=== PATIENT | female | born 1990 | race Caucasian/White ===

== ENCOUNTER 2018-11-19 20:29 | Emergency (ER) | payer BC, SELFPAY ==
[2018-11-19 20:30] VITALS: BP 144/87; PULSE 82; RESP 15; TEMP 36.8; O2SAT 97; BMI 35.3
--- NOTE | 2018-11-19 21:15 | ED.DCSUM_ITS ---
- ER Visit Summary Date of Service: 11/19/18 Chief Complaint: [Redness and swelling to right arm] History of Present Illness: The patient is a 28 F [resents to the emergency department with redness and swelling to the right arm that she developed yesterday. Patient [place] felt something sting her in the back of the arm however she did not see an insect. Patient now has increased pain, redness, and swelling. Patient states the area feels warm to the touch. She denies any fever although she is been nauseated today. The area is somewhat itchy.] Physical Examination: [HEENT-PERRLA, EOMI. Cranial nerves II through XII grossly intact. TMs clear. Mucous membranes moist. No adenopathy. Cardiovascular-regular rate and rhythm without murmur or ectopy Lungs-clear to auscultation, chest wall stable without crepitus or subcu emphysema Abdomen-normoactive bowel sounds, soft, nontender, no rebound or rigidity, no peritoneal signs. Extremities-intact ?4, normal range of motion, normal pulses, atraumatic. Right arm-right upper arm over the area of tricep has a oval area of erythema measuring approximately 8 x 10 cm it is warm to the touch. No fluctuance noted. No lymphogenic streaking noted. Slightly tender to palpation. No puncture wounds noted.] Test Results: [None indicated] Emergency Department Course and Treatment: [She will start on Keflex and Bactrim.] Treatment Plan: [Discharged home with prescription for Keflex and Bactrim. 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 Patient advised to return if increasing pain, redness, swelling, or conditions worsen anyway.] Disposition: [Discharged home in stable condition.] Impression: Insect bite right arm with cellulitis [] This note was generated with [employer] dictation software. It may contain incorrect words, spelling, and punctuation that were not noted in review of the chart prior to signing
--- NOTE | 2018-11-19 21:17 | ED.DEP ---
ED Disposition - Plan for ED Patient: Instructions: INSECT STING/BITE, Infected Prescriptions: Smz/Tmp Ds [Bactrim Ds] 1 tab PO BID #14 tab Prescription Printed Cephalexin [Keflex] 500 mg PO Q6 #40 cap Prescription Printed Referrals: Monty Mcleod MD [STAFF PHYSICIAN] - 3-5 Days
[2018-11-19 21:33] VITALS: RESP 15
[2018-11-19] MEDS: Cephalexin 250 MG Capsule 500 MG PO (21:35)
[2018-11-19] MEDS: Smz/Tmp Ds Tablet 1 TABLET PO (21:35)
== END 2018-11-19 21:38 | disposition home or self-care (01) ==
LOC: ED 21:22
PROVIDERS: Emergency Provider Emergency Medicine
DX: S40.861A Insect bite (nonvenomous) of right upper arm, initial encounter (principal); L03.113 Cellulitis of right upper limb; W57.XXXA Bitten or stung by nonvenomous insect and other nonvenomous arthropods, initial encounter; Y93.9 Activity, unspecified; Y92.9 Unspecified place or not applicable
CPT/HCPCS: 99283

== ENCOUNTER 2019-01-24 09:10 | Emergency (ER) | payer BC, SELFPAY ==
[2019-01-24 09:12] VITALS: BP 160/85; PULSE 82; RESP 17; TEMP 36.9; O2SAT 96; BMI 34.3
--- NOTE | 2019-01-24 09:34 | RAD_ITS ---
STUDY: X-RAY - LEFT ANKLE REASON FOR EXAM: Female, 28 years old. Pain. TECHNIQUE: 3 view(s) of the ankle. COMPARISON: None. FINDINGS: Normal visualized distal tibia and fibula. Normal medial and lateral malleoli. Normal tibiotalar articulation and ankle mortise. Small plantar spur. The visualized subtalar, talonavicular, calcaneocuboid and tarsal articulations are normal. The soft tissue structures are unremarkable. RAD/Ankle min 3 Views IMPRESSION: Small plantar spur. Electronically Signed: Mark De Leon, at 10:19 EST , Service support ,
--- NOTE | 2019-01-24 09:34 | RAD_ITS ---
STUDY: X-RAY - LEFT FOOT CLINICAL: Female, 28 years old. Pain. TECHNIQUE: 3 view(s) of the foot. COMPARISON: None. FINDINGS: There is a plantar calcaneal spur. Normal visualized subtalar, talonavicular, calcaneocuboid, tarsal and tarsometatarsal articulations. Normal metatarsi. Normal metatarsophalangeal joint of the great toe. Normal tibial and fibular sesamoid bones. Normal interphalangeal joint of the great toe. Normal phalanges of the great toe. Normal second through fifth metatarsophalangeal joints. Normal interphalangeal joints and phalanges of the lesser toes. The soft tissue structures are unremarkable. RAD/Foot min 3 Views IMPRESSION: Small plantar spur Electronically Signed: Mark De Leon, at 10:20 EST , Service support ,
--- NOTE | 2019-01-24 09:40 | ED.VISSUMM ---
- ER Visit Summary Date of Service: 01/24/19 Chief Complaint: Foot and ankle pain History of Present Illness: The patient is a 28 F no significant past medical history. Patient states she was seated she got up her foot was asleep she stepped awkwardly on her left foot heard a pop is complaining of pain both of the left lateral ankle and her left foot. She denies any prior surgeries to this foot. She has had a growth plate fracture of 1 of her feet but is unsure which one. She denies any knee or hip pain. No other injuries. Physical Examination: Young female no acute distress vital signs are stable afebrile. HEENT exam unremarkable. Lungs clear to auscultation. Heart regular rhythm no murmur. Abdomen soft nontender. Patient is moving all 4 extremities. Neurovascular intact. There is no edema or swelling. No redness or warmth. The left hip and left knee are nontender with normal range of motion no swelling. Left ankle tender in the left lateral malleolus. No significant swelling. She has normal dorsi plantarflexion. Achilles tendon is intact. No bony deformity. Left foot proximal third of the foot is tender to palpation as is the midfoot. Again no gross bony deformity. Normal DP pulse. No swelling. He is able to wiggle her toes. Normal cap refill. And sensation. Neurologic exam unremarkable. Test Results: Left ankle x-ray 3 views read by myself no acute abnormality read both by myself and the radiologist. Plantar heel spur Left foot x-ray 3 views read by myself no acute abnormality read by myself and the radiologist. Emergency Department Course and Treatment: Motrin for pain Treatment Plan: Repeat exam unchanged. Patient and I went over her x-ray results. Ice, elevate, Motrin, crutches and increase weightbearing as tolerated. Follow-up if not improving. Disposition: Discharge Impression: Acute left foot and ankle sprain This note was generated with [employer] dictation software. It may contain incorrect words, spelling, and punctuation that were not noted in review of the chart prior to signing ED Disposition - Plan for ED Patient: Referrals: Mahogany Koehler DO [Primary Care Provider] -
[2019-01-24] MEDS: Ibuprofen 400 MG Tablet 800 MG PO (09:52)
--- NOTE | 2019-01-24 10:56 | ED.DEP ---
ED Disposition - Plan for ED Patient: Disposition: Home or Assisted Living Instructions: Sprain, Ankle, with X-Ray Referrals: Mahogany Koehler, [Primary Care Provider] - 10-14 Days if not better Additional Instructions: Ice and elevate your foot and ankle. Motrin for pain and swelling. Crease weightbearing as tolerated. Follow-up with your doctor if not improving in 2 weeks.
== END 2019-01-24 11:40 | disposition home or self-care (01) ==
PROVIDERS: Emergency Provider Emergency Medicine; Family Provider Internal Medicine; PCP Internal Medicine
DX: S93.602A Unspecified sprain of left foot, initial encounter (principal); S93.402A Sprain of unspecified ligament of left ankle, initial encounter; M77.32 Calcaneal spur, left foot; X50.1XXA Overexertion from prolonged static or awkward postures, initial encounter; Y93.9 Activity, unspecified; Y92.9 Unspecified place or not applicable
CPT/HCPCS: 73610; 73630; 99283

== ENCOUNTER 2020-11-28 15:44 | Outpatient (CLI) | payer OTHER, SELFPAY ==
[2020-11-28 15:56] VITALS: BMI 36.1
[2020-11-28 15:59] VITALS: PULSE 93; O2SAT 97
[2020-11-28 16:08] VITALS: BP 130/77; PULSE 86; TEMP 36.7
--- NOTE | 2020-11-28 20:49 | OB.TRI.PN ---
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 See problem list details for additional plan information. Charges/Coding Procedures Urinary/Genital [id number]: [id number] non-stress test Interp
== END 2020-11-28 16:30 | disposition home or self-care (01) ==
LOC: WP 16:27 → WPOUT 17:58
PROVIDERS: PCP Internal Medicine; Referring Provider Obstetrics & Gynecology; Visit Provider Obstetrics & Gynecology
DX: O36.8120 Decreased fetal movements, second trimester, not applicable or unspecified (principal); Z3A.25 25 weeks gestation of pregnancy
CPT/HCPCS: 59025; 59050; 99218; G0378

== ENCOUNTER 2021-02-15 16:40 | Outpatient (CLI) | payer OTHER, SELFPAY ==
[2021-02-15 16:50] VITALS: BP 132/83; PULSE 95; TEMP 36.7; O2SAT 97
[2021-02-15 18:11] VITALS: BMI 37.1
--- NOTE | 2021-02-17 13:06 | OB.TRI.NOTE ---
HPI - General HPI Narrative STORMY YOUNG, is a 30 F @ 37+ weeks who presents for decreased FM gets care at outside facility. no complications with . PFSH PFSH Home Medications [id number] [] 1 tab PO DAILY 11/28/20 [History Last Taken Unknown] Allergy/AdvReac Type Severity Reaction Status Date / Time dexamethasone Allergy Hives Verified 01/24/19 09:11 Social History Smoking Status: Never smoker NST FHR Rate Baby A Baseline: 150 Variability:: Moderate Accelerations:: 15 x 15 Decelerations:: None NST Reactive:: Yes FHR Category:: Category I Uterine Activity:: irregular ctx Assessment & Plan (1) Decreased movement: QUALIFIERS: Fetus number: single or unspecified fetus Trimester: third trimester Qualified Code(s): O36.8130 - Decreased movements, third trimester, not applicable or unspecified (2) 37 weeks gestation of : PLAN: 37 weeks, decreased FM well being established- pt dc home to follow up with OB for routine care
== END 2021-02-15 23:59 | disposition home or self-care (01) ==
LOC: WPOUT 17:10 → WP 17:17
PROVIDERS: PCP Internal Medicine; Visit Provider Obstetrics & Gynecology
DX: O36.8130 Decreased fetal movements, third trimester, not applicable or unspecified (principal); Z3A.37 37 weeks gestation of pregnancy
CPT/HCPCS: 59025; 59050; 99218; G0378

== ENCOUNTER 2021-03-06 15:12 | Emergency (ER) | payer OTHER, SELFPAY ==
--- NOTE | 2021-03-06 15:16 | ED.RN ---
sent to OB for high BP
== END 2021-03-13 15:15 | disposition left against medical advice (07) ==
LOC: ED 03-13 17:16
PROVIDERS: PCP Internal Medicine
DX: Z53.21 Procedure and treatment not carried out due to patient leaving prior to being seen by health care provider (principal)

== ENCOUNTER 2021-03-06 16:27 | Observation (INO) | payer OTHER, SELFPAY ==
[2021-03-06] VITALS (10 sets, daily range): BP systolic 133–175; BP diastolic 78–107; PULSE 72–93; TEMP 36.6; BMI 30.5
[2021-03-06 16:50] LABS: Hematocrit 35.3 % (37-47); Hemoglobin 12.4 g/dL (12.0-15.0); Mean Corp Hgb Conc 35.1 g/dL (32-36); Mean Corpuscular Volume 85.5 fL (81-99); Platelet Count 213 K/mm3 (150-450); RBC Distribution Width CV 14.6 % (11.6-14.6); Red Blood Count 4.13 M/mm3 (4.2-5.4); White Blood Count 6.9 K/mm3 (4.4-11.0)
[2021-03-06 17:13] LABS: Protein, Urine (Random) < 6.0 mg/dL (<11.9)
[2021-03-06 17:16] LABS: ALB/GLOB Ratio 0.8 RATIO (0.9-2.4); AST(SGOT) 26 U/L (15-37); Alanine Aminotransfer ALT/SGPT 19 U/L (13-56); Albumin, Serum 2.7 g/dL (3.2-5.0); Alkaline Phosphatase 132 U/L (45-117); Anion Gap 7 (5-15); BUN 6 mg/dL (7-18); BUN/Creat Ratio 17.3 RATIO (10-20); Calcium,Total 8.9 mg/dL (8.5-10.1); Chloride 111 mmol/L (98-107); Creatinine, Serum 0.35 mg/dL (0.55-1.02); EST Glomerular Filtration Rate 233 mL/min (>60); Est Glom Filt Rate - Afr Amer 282 mL/min (>60); Estimated Creatinine Clearance 202.95 ml/min; Globulin 3.6 g/dL (2.2-4.2); Glucose 87 mg/dL (74-106); LDH 235 U/L (84-246); Potassium 3.6 mmol/L (3.5-5.1); Protein, Total 6.3 g/dL (6.4-8.2); Sodium Level 141 mmol/L (136-145)
[2021-03-06 17:25] LABS: Uric Acid 4.3 mg/dL (2.6-6.0)
[2021-03-06] MEDS: Acetaminophen 500 MG Tablet 1000 MG PO (17:34)
[2021-03-06 18:49] LABS: Bacteria 0 SEEN /hpf (None Seen); Mucous, Urine 0 SEEN /hpf (<or=2+); Red Blood Cells-Urine 0 SEEN /hpf (0-5); Squamous Epithelial Cells - UA 0 SEEN /hpf (5-10); White Blood Cells 0 SEEN /hpf (0-5)
--- NOTE | 2021-03-06 19:18 | NURSING ---
190-dr sury hayes in to assess pt. ok w discharge home.
[2021-03-06 19:20] LABS: Color, Urine Yellow (Yellow); Glucose, Dipstick Normal (Normal); Ketone-Dipstick Negative (Negative); Leukocyte Esterase-Dipstick Negative /ul (Negative); Nitrite-Dipstick Negative (Negative); Occult Blood-Urine Negative /ul (Negative); Protein-Dipstick Negative (Negative); Urine Bilirubin Dipstick Negative (Negative); Urine Clarity Clear (Clear); Urine Urobilinogen Normal (Normal)
--- NOTE | 2021-03-06 21:00 | OB.TRI.HP_ITS ---
HPI - General General Date of Admission: 03/06/21 HPI Narrative STORMY YOUNG, is a 30 F who presents on day #2 with c/o headache. She had an uncomplicated vaginal delivery on 03/04/21 at [facility] following induction of labor. She reports elevated blood pressures diagnosed around the time of delivery. She was discharged to home yesterday. She had COVID 1-2 weeks prior to delivery. She denies prior history of preeclampsia in recent or previous or chronic hypertension outside of . Headache is frontal, nonradiating. Denies vision changes, shortness of breath, chest pain, shortness of breath, abdominal pain. She is followed by Dr. Nevaeh richardson in [place], but lives here in [place]. [facility] Medical History (Updated 03/08/21 @ 20:[address] Mallika Herrera MD) Gestational hypertension Home Medications [id number] [] 1 tab PO DAILY 11/28/20 [History Last Taken 2 Days Ago ~03/04/21] ibuprofen 600 mg PO Q6H PRN 03/06/21 [History Last Taken 03/06/21 12:30] Allergy/AdvReac Type Severity Reaction Status Date / Time dexamethasone Allergy Hives Verified 01/24/19 09:11 Surgical History no surgical history no surgical history Social History Smoking Status: Never smoker History 2 Elective abortions Hx Para 2 Spontaneous abortions Hx # Term Pregnancies 2 Ectopic pregnancies Hx # Pregnancies Multiple births # of living children 2 Physical Exam Const alert, oriented x3 and no apparent distress General Appearance: cooperative and comfortable HEENT normocephalic Resp normal respiratory effort and normal air movement Auscultation: clear to auscultation bilaterally Cardio regular rate, regular rhythm, S1 normal heart sound and S2 normal heart sound GI soft to palpation, non-tender and non-distended OB / External & Speculum: other Uterus Palpation: other OB Fundus firm and nontender Extremity no calf tenderness Extremity Narrative: trace bilateral pedal edema, no pitting Neuro oriented x3 and deep tendon reflexes 2+ bilaterally Neuro Narrative: No clonus Assessment & Plan (1) headache: PLAN: Headache improved following Tylenol. Single severe range BP initially, not reproducible, otherwise mild elevation over approx 4 hours observation. Labs obtained normal and exam unremarkable - not c/w preeclampsia d/c home Encouraged home BP check OSH records requested however received following discharge - - labs relatively unchanged Pt to f/u this coming week with primary OB for BP check S/sx preeclampsia reviewed Charges/Coding Visit Charges Office Visits / Consults: [id number] OV L3 New
== END 2021-03-06 19:17 | disposition home or self-care (01) ==
LOC: WP 19:17 → WPOUT 03-09 14:51 → WP 03-09 14:51
PROVIDERS: Admitting Provider Obstetrics & Gynecology; PCP Internal Medicine; Referring Provider Obstetrics & Gynecology; Visit Provider Obstetrics & Gynecology
DX: O90.89 Other complications of the puerperium, not elsewhere classified (principal); R51.9 Headache, unspecified; Z86.16 Personal history of COVID-19
CPT/HCPCS: 36415; 80053; 81001; 82570; 83615; 84156; 84550; 85027; 99218; G0378

== ENCOUNTER 2021-03-13 13:53 | Inpatient (IN) | payer OTHER, SELFPAY ==
[2021-03-13] VITALS (67 sets, daily range): BP systolic 119–183; BP diastolic 67–105; PULSE 53–93; RESP 14–16; TEMP 35.8–36.9; O2SAT 91–98; BMI 27.4; BMI 33.3
--- NOTE | 2021-03-13 11:12 | ED.RN ---
CONTACTED CINTHYA PEARCE IN OB. PT SENT TO OB
[2021-03-13] MEDS: Lactated Ringers 500 ML IV.SOLN. IV (12:11)
--- NOTE | 2021-03-13 12:27 | HP.PCM.OB_ITS ---
History and Physical Date of Admission: 03/13/21 HPI: 31-year-old G2, P2 on March 04 presenting with headache. Reports on and off headache for 2 days. States that it is on the right side behind her eye and radiates posteriorly. No visual disturbances, no photophobia or phonophobia. Denies nausea or vomiting, denies right upper quadrant pain, denies chest pain or shortness of breath, diarrhea or constipation, fevers or chills. Last Tylenol dosing at 10 AM, last Motrin dosing at 5 AM. States that at home her blood pressures were in the 150s systolic which is why she came to the hospital today. Blood pressure on arrival severe range, repeat within normal limits slightly elevated diastolic. 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: G1: FT G2: FT , 03/04/21 Medical history: Denies Surgical history: Appendectomy, ear tubes Allergies: Dexamethasone causes anxiety and tachycardia Social history: Denies tobacco, alcohol, drug use Family history: Noncontributory Medications: Tylenol and Motrin, labetalol 100 twice daily Review of systems: Negative otherwise stated above Physical exam Vital signs: Blood pressure 136/91 -->138/81 temp 97.6 ?F, pulse 73, respiratory rate 14, 96% on room air General: Patient is no acute distress, resting in bed with lights on HEENT: Normocephalic/atraumatic, PERRLA Cardiorespiratory: No increased effort, heart rate regular Abdomen: Soft, nontender, no right upper quadrant pain Extremities: Minimal edema Neurologic: Cranial nerves II through XII grossly intact, patellar reflexes 2/4 bilaterally, no clonus Musculoskeletal: Full range of movement, strength 5/5 throughout all extremities Labs: Pending CBC, CMP, LDH, urinalysis, urine protein creatinine ratio Assessment/plan: 31-year-old G2, P2 presenting with headache and elevated blood pressures. -Blood work pending -500 cc LR bolus -IV Toradol for headache pending
[2021-03-13] MEDS: Ketorolac 15 MG/ML Vial IV (12:41)
[2021-03-13 12:47] LABS: Bacteria 0 SEEN /hpf (None Seen); Mucous, Urine 0 SEEN /hpf (<or=2+); Red Blood Cells-Urine 0 SEEN /hpf (0-5); White Blood Cells 0 SEEN /hpf (0-5)
[2021-03-13 12:57] LABS: Color, Urine Yellow (Yellow); Glucose, Dipstick Normal (Normal); Ketone-Dipstick Negative (Negative); Leukocyte Esterase-Dipstick Negative /ul (Negative); Nitrite-Dipstick Negative (Negative); Occult Blood-Urine Negative /ul (Negative); Protein-Dipstick Negative (Negative); Urine Bilirubin Dipstick Negative (Negative); Urine Clarity Sl. Cloudy (Clear); Urine Urobilinogen Normal (Normal); Urine pH 6.5 (5.0 - 8.0)
[2021-03-13 12:59] LABS: Protein, Urine (Random) < 6.0 mg/dL (<11.9); Protein:Creat Ratio 114 mg/g CRE (0-200)
[2021-03-13 13:04] LABS: Squamous Epithelial Cells - UA 0-5 SEEN /hpf (5-10)
[2021-03-13 13:18] LABS: Hematocrit 41.5 % (37-47); Hemoglobin 13.8 g/dL (12.0-15.0); Mean Corp Hgb Conc 33.3 g/dL (32-36); Mean Corpuscular Hgb 28.7 pg (27.0-32.0); Mean Corpuscular Volume 86.3 fL (81-99); Mean Platelet Vol. 9.3 fl (6.2-12.0); Platelet Count 323 K/mm3 (150-450); RBC Distribution Width CV 13.8 % (11.6-14.6); RBC Distribution Width SD 43.7 fl (35.1-43.9); Red Blood Count 4.81 M/mm3 (4.2-5.4); White Blood Count 7.2 K/mm3 (4.4-11.0)
[2021-03-13 13:44] LABS: ALB/GLOB Ratio 0.8 RATIO (0.9-2.4); AST(SGOT) 14 U/L (15-37); Alanine Aminotransfer ALT/SGPT 20 U/L (13-56); Albumin, Serum 3.1 g/dL (3.2-5.0); Alkaline Phosphatase 121 U/L (45-117); Anion Gap 6 (5-15); BUN 7 mg/dL (7-18); BUN/Creat Ratio 13.8 RATIO (10-20); Calcium,Total 8.9 mg/dL (8.5-10.1); Chloride 108 mmol/L (98-107); Creatinine, Serum 0.51 mg/dL (0.55-1.02); EST Glomerular Filtration Rate 150 mL/min (>60); Est Glom Filt Rate - Afr Amer 182 mL/min (>60); Glucose 79 mg/dL (74-106); LDH 216 U/L (84-246); Potassium 3.3 mmol/L (3.5-5.1); Protein, Total 7.1 g/dL (6.4-8.2); Sodium Level 141 mmol/L (136-145)
[2021-03-13] MEDS: Labetalol (Prefilled) 20 MG/4 ML IV (14:12)
[2021-03-13] MEDS: Magnesium Sulfate 4gm/100mL 4 GM/100 ML IV.SOLN. IV (14:25)
[2021-03-13 14:42] LABS: Magnesium 2.3 mg/dL (1.6-2.6)
[2021-03-13] MEDS: Magnesium Sulfate 4gm/100mL 2 GM/50 ML IV.SOLN. IV (14:49)
[2021-03-13] MEDS: Magnesium Sulfate 20 GM/500 ML BAG IV ×2 (15:00→23:40)
[2021-03-13] MEDS: Enoxaparin 40 MG/0.4 ML Syringe SC (15:42)
[2021-03-13] MEDS: Labetalol 200 MG Tablet PO ×2 (15:42→23:28)
[2021-03-13] MEDS: Acetaminophen 325 MG Tablet 650 MG PO ×2 (17:25→23:29)
[2021-03-13] MEDS: Ibuprofen 600 MG Tablet PO (19:04)
[2021-03-13 23:06] LABS: Magnesium 6.1 mg/dL (1.6-2.6)
[2021-03-14] VITALS (27 sets, daily range): BP systolic 94–123; BP diastolic 53–85; PULSE 66–184; RESP 16; TEMP 36–36.8; O2SAT 81–97
[2021-03-14] MEDS: Ibuprofen 600 MG Tablet PO ×4 (01:50→22:30)
[2021-03-14] MEDS: Acetaminophen 325 MG Tablet 650 MG PO ×3 (05:30→18:25)
[2021-03-14] MEDS: Labetalol 200 MG Tablet PO ×2 (08:45→16:50)
[2021-03-14] MEDS: Magnesium Sulfate 20 GM/500 ML BAG IV (09:55)
[2021-03-14] MEDS: Potassium Chloride IVPB 40 MEQ 100 MEQ IV BOLUS ×4 (10:00→13:40)
[2021-03-14] MEDS: Enoxaparin 40 MG/0.4 ML Syringe SC (11:30)
[2021-03-14 19:00] LABS: ALB/GLOB Ratio 0.9 RATIO (0.9-2.4); AST(SGOT) 13 U/L (15-37); Alanine Aminotransfer ALT/SGPT 18 U/L (13-56); Alkaline Phosphatase 108 U/L (45-117); Anion Gap 8 (5-15); BUN 7 mg/dL (7-18); Calcium,Total 6.6 mg/dL (8.5-10.1); Chloride 106 mmol/L (98-107); Creatinine, Serum 0.37 mg/dL (0.55-1.02); EST Glomerular Filtration Rate 218 mL/min (>60); Est Glom Filt Rate - Afr Amer 264 mL/min (>60); Estimated Creatinine Clearance 158.24 ml/min; Globulin 3.4 g/dL (2.2-4.2); Glucose 96 mg/dL (74-106); Protein, Total 6.4 g/dL (6.4-8.2); Sodium Level 137 mmol/L (136-145)
[2021-03-14 22:39] LABS: Absolute Lymphocyte Count 2.48 X10^3/uL (0.83-4.51); Absolute Neutrophil Count 3.4 X10^3/uL (2.0-7.7); Basophil# 0.05 X10^3/uL; Basophil% 0.7 % (0-1); Eosinophil# 0.21 X10^3/uL; Eosinophils% 3.1 % (0-5); Hematocrit 39.2 % (37-47); Hemoglobin 13.1 g/dL (12.0-15.0); Lymphocyte # 2.48 X10^3/ul (0.83-4.51); Lymphocyte % 36.7 % (19-41); Mean Corp Hgb Conc 33.4 g/dL (32-36); Mean Corpuscular Volume 86.9 fL (81-99); Mean Platelet Vol. 9.2 fl (6.2-12.0); Monocyte# 0.61 X10^3/uL; NRBC Flagged by Analyzer 0 % (0-5); Neutrophil # 3.39 X10^3/uL (2.7-7.7); Neutrophil % 50.4 % (47-70); Platelet Count 301 K/mm3 (150-450); RBC Distribution Width CV 13.9 % (11.6-14.6); RBC Distribution Width SD 44.1 fl (35.1-43.9); Red Blood Count 4.51 M/mm3 (4.2-5.4); White Blood Count 6.8 K/mm3 (4.4-11.0)
[2021-03-15] VITALS (23 sets, daily range): BP systolic 123–162; BP diastolic 60–100; PULSE 59–77; RESP 16–18; TEMP 36.4–36.8; O2SAT 93–97
[2021-03-15 00:15] LABS: Magnesium 6.6 mg/dL (1.6-2.6)
[2021-03-15] MEDS: Acetaminophen 325 MG Tablet 650 MG PO (01:00)
[2021-03-15] MEDS: Labetalol 200 MG Tablet PO ×3 (01:00→16:26)
[2021-03-15 01:21] LABS: Magnesium 7.1 mg/dL (1.6-2.6)
[2021-03-15 06:44] LABS: Absolute Neutrophil Count 3.1 X10^3/uL (2.0-7.7); Basophil# 0.03 X10^3/uL; Basophil% 0.5 % (0-1); Eosinophil# 0.24 X10^3/uL; Eosinophils% 3.9 % (0-5); Hematocrit 40.1 % (37-47); Hemoglobin 13.2 g/dL (12.0-15.0); Lymphocyte % 36.2 % (19-41); Mean Corp Hgb Conc 32.9 g/dL (32-36); Mean Corpuscular Hgb 28.5 pg (27.0-32.0); Mean Corpuscular Volume 86.6 fL (81-99); Mean Platelet Vol. 9.8 fl (6.2-12.0); Monocyte# 0.55 X10^3/uL; NRBC Flagged by Analyzer 0 % (0-5); Neutrophil # 3.05 X10^3/uL (2.7-7.7); Neutrophil % 50.2 % (47-70); Platelet Count 336 K/mm3 (150-450); RBC Distribution Width CV 13.9 % (11.6-14.6); RBC Distribution Width SD 43.8 fl (35.1-43.9); Red Blood Count 4.63 M/mm3 (4.2-5.4); White Blood Count 6.1 K/mm3 (4.4-11.0)
[2021-03-15 07:12] LABS: ALB/GLOB Ratio 0.8 RATIO (0.9-2.4); AST(SGOT) 35 U/L (15-37); Alanine Aminotransfer ALT/SGPT 20 U/L (13-56); Alkaline Phosphatase 106 U/L (45-117); Anion Gap 7 (5-15); BUN 8 mg/dL (7-18); BUN/Creat Ratio 18.8 RATIO (10-20); Calcium,Total 7.7 mg/dL (8.5-10.1); Chloride 111 mmol/L (98-107); Creatinine, Serum 0.42 mg/dL (0.55-1.02); EST Glomerular Filtration Rate 185 mL/min (>60); Est Glom Filt Rate - Afr Amer 223 mL/min (>60); Globulin 3.7 g/dL (2.2-4.2); Glucose 84 mg/dL (74-106); Potassium 3.8 mmol/L (3.5-5.1); Protein, Total 6.7 g/dL (6.4-8.2); Sodium Level 140 mmol/L (136-145)
--- NOTE | 2021-03-15 09:40 | PN.OBGYN_ITS ---
Subjective Subjective Admit day 3. Patient feeling improved off of magnesium. Denies headache, vision changes, chest pain or shortness of breath, nausea or vomiting, right upper quadrant pain. Feeding going well. Ambulating in room. Objective Data Objective Data Vital Signs: Vital Signs Temp Pulse Resp BP Pulse Ox 97.6 F L 71 16 149/94 H 94 03/15/21 08:05 03/15/21 09:17 03/15/21 08:05 03/15/21 09:20 03/15/21 08:06 Oxygen Delivery Method Room Air Weight: 77.337 kg Body Mass Index (BMI) 33.3 Intake & Output: Intake and Output for Last 24 Hours 03/13/21 03/14/21 03/15/21 23:59 23:59 23:59 Intake Total 1483.33 / 1483.33 Output Total 1100 / 1100 Balance 383.33 / 383.33 Lab / Micro Data Result Diagrams: 03/15/21 06:19 03/15/21 06:19 Labs: Laboratory Results - last 24 hr 03/14/21 05:00: WBC 6.8, RBC 4.51, Hgb 13.1, Hct 39.2, MCV 86.9, MCH 29.0, MCHC 33.4, RDW Std Deviation 44.1 H, RDW Coeff of Nettie 13.9, Plt Count 301, MPV 9.2, Immature Gran % (Auto) 0.100, Neut % (Auto) 50.4, Lymph % (Auto) 36.7, [place] % (Auto) 9.0, Eos % (Auto) 3.1, Baso % (Auto) 0.7, Absolute Neuts (auto) 3.4, Absolute Lymphs (auto) 2.48, Nucleated RBC % 0 03/14/21 05:00: Sodium 137, Potassium 3.0 L, Chloride 106, Carbon Dioxide 23.0, Anion Gap 8, BUN 7, Creatinine 0.37 L, Estim Creat Clear Calc 158.24, Est GFR (MDRD) Af Amer 264, Est GFR (MDRD) Non-Af 218, BUN/Creatinine Ratio 19.0, Glucose 96, Calcium 6.6 L, Total Bilirubin 0.50, AST 13 L, ALT 18, Alkaline Phosphatase 108, Total Protein 6.4, Albumin 3.0 L, Globulin 3.4, Albumin/Globulin Ratio 0.9 01/29/22 05:00: Magnesium 6.6 H* 03/14/21 11:45: Magnesium 7.1 H* 03/15/21 06:19: Sodium 140, Potassium 3.8, Chloride 111 H, Carbon Dioxide 22.0, Anion Gap 7, BUN 8, Creatinine 0.42 L, Estim Creat Clear Calc 139.40, Est GFR (MDRD) Af Amer 223, Est GFR (MDRD) Non-Af 185, BUN/Creatinine Ratio 18.8, Glucose 84, Calcium 7.7 L, Total Bilirubin 0.70, AST 35, ALT 20, Alkaline Phosphatase 106, Total Protein 6.7, Albumin 3.0 L, Globulin 3.7, Albumin/Globulin Ratio 0.8 L 03/15/21 06:19: WBC 6.1, RBC 4.63, Hgb 13.2, Hct 40.1, MCV 86.6, MCH 28.5, MCHC 32.9, RDW Std Deviation 43.8, RDW Coeff of Nettie 13.9, Plt Count 336, MPV 9.8, Immature Gran % (Auto) 0.200, Neut % (Auto) 50.2, Lymph % (Auto) 36.2, [place] % (Auto) 9.0, Eos % (Auto) 3.9, Baso % (Auto) 0.5, Absolute Neuts (auto) 3.1, Absolute Lymphs (auto) 2.20, Nucleated RBC % 0 Micro: Microbiology 03/13/21 15:35 Nasal Secretion SARS-CoV-2 Antigen (Rapid) - Final Physical Exam Const alert, oriented x3 and no apparent distress HEENT normocephalic Head and Scalp: atraumatic Neck full ROM Resp normal respiratory effort and clear to auscultation bilaterally Cardio regular rate and regular rhythm GI normal to inspection, nondistended, normoactive bowel sounds Back/Spine normal ROM Extremity normal to inspection and no pedal edema Neuro no focal motor deficits, no sensory deficits noted and deep tendon reflexes 2+ bilaterally Motor Exam: clonus absent Psych mental status grossly normal and affect normal Assessment & Plan (1) Severe pre-eclampsia, delivered, current hospitalization: PLAN: 31-year-old admitted for preeclampsia with severe features based on elevated blood pressures in the severe range. -Status post 24 hours of magnesium sulfate, stopped yesterday afternoon -Hypokalemia, resolved status post IV KCl on 03/14 -Patient asymptomatic -Continue labetalol 200 mg every 8 hours, will adjust based on blood pressure monitoring today. Diet: Regular IV fluids: HL IV VTE prophylaxis: Lovenox 40 mg daily Dispo: Discharge home tomorrow if blood pressures well controlled
[2021-03-15] MEDS: Enoxaparin 40 MG/0.4 ML Syringe SC (09:53)
[2021-03-16] VITALS (13 sets, daily range): BP systolic 124–157; BP diastolic 73–95; PULSE 59–86; RESP 16; TEMP 36.3–36.6; O2SAT 96–97
[2021-03-16] MEDS: Labetalol 100 MG Tablet 300 MG PO ×2 (00:20→08:48)
[2021-03-16 06:36] LABS: Hematocrit 41.2 % (37-47); Hemoglobin 13.5 g/dL (12.0-15.0); Mean Corp Hgb Conc 32.8 g/dL (32-36); Mean Corpuscular Hgb 28.4 pg (27.0-32.0); Mean Corpuscular Volume 86.7 fL (81-99); Mean Platelet Vol. 9.2 fl (6.2-12.0); Platelet Count 345 K/mm3 (150-450); RBC Distribution Width CV 13.7 % (11.6-14.6); RBC Distribution Width SD 43.9 fl (35.1-43.9); Red Blood Count 4.75 M/mm3 (4.2-5.4); White Blood Count 7.5 K/mm3 (4.4-11.0)
[2021-03-16 06:59] LABS: ALB/GLOB Ratio 0.9 RATIO (0.9-2.4); AST(SGOT) 17 U/L (15-37); Alanine Aminotransfer ALT/SGPT 20 U/L (13-56); Albumin, Serum 3.2 g/dL (3.2-5.0); Alkaline Phosphatase 105 U/L (45-117); Anion Gap 6 (5-15); BUN 8 mg/dL (7-18); BUN/Creat Ratio 17.8 RATIO (10-20); Calcium,Total 8.7 mg/dL (8.5-10.1); Chloride 110 mmol/L (98-107); Creatinine, Serum 0.45 mg/dL (0.55-1.02); EST Glomerular Filtration Rate 173 mL/min (>60); Est Glom Filt Rate - Afr Amer 210 mL/min (>60); Estimated Creatinine Clearance 130.11 ml/min; Globulin 3.7 g/dL (2.2-4.2); Glucose 87 mg/dL (74-106); Potassium 3.5 mmol/L (3.5-5.1); Protein, Total 6.9 g/dL (6.4-8.2); Sodium Level 139 mmol/L (136-145)
--- NOTE | 2021-03-16 08:07 | PCM.PN.OB ---
Subjective Subjective No overnight complaints. Denies headache, visual changes, chest pain, shortness of breath, nausea vomiting, right upper quadrant pain. Objective Data Objective Data Vital Signs: Vital Signs Temp Pulse Resp BP Pulse Ox 97.9 F 63 16 154/73 H 96 03/16/21 07:36 03/16/21 07:40 03/16/21 07:35 03/16/21 07:39 03/16/21 07:40 Oxygen Delivery Method Room Air Weight: 170 lb 8 oz Body Mass Index (BMI) 33.3 Lab / Micro Data Result Diagrams: 03/16/21 06:25 03/16/21 06:25 Labs: Laboratory Results - last 24 hr 03/16/21 06:25: WBC 7.5, RBC 4.75, Hgb 13.5, Hct 41.2, MCV 86.7, MCH 28.4, MCHC 32.8, RDW Std Deviation 43.9, RDW Coeff of Nettie 13.7, Plt Count 345, MPV 9.2 03/16/21 06:25: Sodium 139, Potassium 3.5, Chloride 110 H, Carbon Dioxide 23.0, Anion Gap 6, BUN 8, Creatinine 0.45 L, Estim Creat Clear Calc 130.11, Est GFR (MDRD) Af Amer 210, Est GFR (MDRD) Non-Af 173, BUN/Creatinine Ratio 17.8, Glucose 87, Calcium 8.7, Total Bilirubin 0.60, AST 17, ALT 20, Alkaline Phosphatase 105, Total Protein 6.9, Albumin 3.2, Globulin 3.7, Albumin/Globulin Ratio 0.9 Micro: Microbiology 03/13/21 15:35 Nasal Secretion SARS-CoV-2 Antigen (Rapid) - Final Physical Exam Const alert, oriented x3, no apparent distress, average body habitus, healthy appearing and well nourished Exam Limitations: no limitations and altered mental status HEENT normocephalic and moist oral mucous membranes Head and Scalp: atraumatic Face and Sinus: normal facial exam Eyes PERRL Neck full ROM Resp normal respiratory effort, no retractions and no use of accessory muscles GI GI Narrative: Uterus firm and below umbilicus Extremity normal to inspection, full ROM and no clubbing, cyanosis or edema Neuro deep tendon reflexes 2+ bilaterally Motor Exam: clonus absent Psych mental status grossly normal, affect normal, speech normal and activity/motor behavior normal Assessment & Plan (1) Severe pre-eclampsia, delivered, current hospitalization: PLAN: Severe preeclampsia based on severe range blood pressures. Status post magnesium. Increase labetalol to 300 mg 3 times daily overnight, asymptomatic. Labs within normal limits. We will continue to monitor blood pressures and treat as appropriate. Possibly home today pending symptoms and blood pressure control
[2021-03-16] MEDS: Enoxaparin 40 MG/0.4 ML Syringe SC (08:48)
[2021-03-16] MEDS: Labetalol 200 MG Tablet 400 MG PO (14:04)
--- NOTE | 2021-03-16 17:04 | PCM.DC.SUM ---
Providers Date of Admission: 03/13/21 Primary Care Physician: Dr. Mahogany Koehler DO Reason For Visit: PRE ECLAMPSIA Diagnosis Discharge Diagnosis (1) Severe pre-eclampsia, delivered, current hospitalization: Status: Acute Code(s): O14.14 - Severe pre-eclampsia complicating childbirth Plan: Take labetalol 400 mg three times daily. 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 Medications at Discharge Home Medications [id number] 1 tab PO DAILY 11/28/20 ibuprofen 600 mg PO Q6H PRN 03/06/21 acetaminophen 1,000 mg PO.IVFORM Q6H 03/13/21 labetalol 400 mg PO TID 30 Days #180 tab 03/16/21 Hospital Course Operations None Procedures None Summary of Care Provided Hospital Course: 31-year-old G2, P2 status post on 03/04/2021 admitted with severe preeclampsia based on elevated blood pressures in the severe range. Patient admitted on 03/13/2021. She received 24 hours of magnesium sulfate. Her labetalol was increased throughout her stay to 400 mg 3 times daily. On 03/14 she had hypokalemia which was replaced with IV KCl. Labs otherwise have remained stable. On admission patient had headache which resolved and has not returned. Patient in stable condition for discharge on 03/16/2021. 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 She has blood pressure cuff at home. Physical Exam Const alert, oriented x3 and no apparent distress HEENT normocephalic Head and Scalp: atraumatic Eyes PERRL Resp normal respiratory effort and clear to auscultation bilaterally Cardio regular rate and regular rhythm GI normal to inspection, nondistended, normoactive bowel sounds Extremity normal to inspection Neuro no focal motor deficits, no sensory deficits noted and deep tendon reflexes 2+ bilaterally Psych mental status grossly normal Weight / BMI Weight Weight: 77.337 kg Body Mass Index (BMI) 33.3 ABG / Lab / Microbiology Data Result Diagrams: 03/16/21 06:25 03/16/21 06:25 Laboratory: Laboratory Results - last 24 hr 03/16/21 06:25: WBC 7.5, RBC 4.75, Hgb 13.5, Hct 41.2, MCV 86.7, MCH 28.4, MCHC 32.8, RDW Std Deviation 43.9, RDW Coeff of Nettie 13.7, Plt Count 345, MPV 9.2 03/16/21 06:25: Sodium 139, Potassium 3.5, Chloride 110 H, Carbon Dioxide 23.0, Anion Gap 6, BUN 8, Creatinine 0.45 L, Estim Creat Clear Calc 130.11, Est GFR (MDRD) Af Amer 210, Est GFR (MDRD) Non-Af 173, BUN/Creatinine Ratio 17.8, Glucose 87, Calcium 8.7, Total Bilirubin 0.60, AST 17, ALT 20, Alkaline Phosphatase 105, Total Protein 6.9, Albumin 3.2, Globulin 3.7, Albumin/Globulin Ratio 0.9 Microbiology: Microbiology 03/13/21 15:35 Nasal Secretion SARS-CoV-2 Antigen (Rapid) - Final D/C Instructions Discharge Diet: No restrictions Discharge Activity: Return to Normal Activity and May Shower May resume sexual activity in: 4-6 weeks Weight Bearing Status: Weight bearing as tolerated Call your doctor if you observe: Fever of 101 or Higher, Change in Color, Using more than 1 pad per hour, Shortness of breath, Chest pain, Calf discomfort and - (Blood pressure over 160/110, headache unresolved with Tylenol or Motrin, nausea or vomiting, right upper quadrant pain.) Please Follow Up With: Autumn Flores DO When: BP check 1 week. Keep appointment with primary physician on 03/18/21 Meaningful Use Info Meaningful Use Diagnoses (Choose all that apply): None applicable Discharge Plan Admission Admit Date/Time: 03/13/21 13:53 Primary Reason for Your Visit: Post severe pre-eclampsia Attending Provider: Autumn Flores Primary Care Provider: Mahogany Koehler Discharge Orders/Prescriptions Prescriptions: New labetalol 200 mg Tablet 400 mg PO TID 30 Days Qty: 180 RF: 0 Continued gyquhkwa-lhn-Ae-FA 1 mg Tablet 1 tab PO DAILY RF: 0 ibuprofen 600 mg Tablet 600 mg PO Q6H PRN (Reason: Pain) RF: 0 acetaminophen 1,000 mg PO.IVFORM Q6H RF: 0 Discontinued labetalol 100 mg PO.IVFORM BID RF: 0 Referrals / Follow Up: Mahogany Koehler DO [Primary Care Provider] - Disposition Disposition (needs filled in before D/C Order can be placed): Home, Self Care
--- NOTE | 2021-03-16 21:43 | NURSING ---
MAR entries by this RN charted per paper charting by previous RNs due to [facility] dowtime. Dread Barfield RN and Live Ramirez RN received order at 1300 on 03/14/[address] Daquan Flores via [facility] to decrease pt magnesium to 1gm/hr. This RN charted med administration at 1330 and ordered stop of infusion at 1626 per Dread Barfield RN and Live Ramirez RN per paper charting.
== END 2021-03-16 18:25 | disposition home or self-care (01) | DRG 776 ==
LOC: WP 13:58 → WPOUT 03-16 11:07
PROVIDERS: Admitting Provider Student in an Organized Health Care Education/Training Program; PCP Internal Medicine; Visit Provider Student in an Organized Health Care Education/Training Program
DX: O14.15 Severe pre-eclampsia, complicating the puerperium (principal); O99.893 Other specified diseases and conditions complicating puerperium; E87.6 Hypokalemia; R00.1 Bradycardia, unspecified; O99.285 Endocrine, nutritional and metabolic diseases complicating the puerperium
CPT/HCPCS: 36415; 80053; 81001; 82570; 83615; 83735; 84156; 85025; 85027; 86850; 86900; 86901; 87426; J7120